=== PATIENT | female | born 1990 | race Caucasian/White ===

== ENCOUNTER 2016-06-24 10:01 | Emergency (ER) | payer MEDICAID ==
[~2016-06-24] VITALS: Ht 165.1 cm; Wt 72.0 kg
[2016-06-24 10:13] VITALS: Ht 165.1 cm; Wt 72.0 kg
[2016-06-24 11:29] LABS: URINE BLOOD (Dip) POC Negative (NEGATIVE)
--- NOTE | 2016-06-24 11:44 | ERD ---
ER Documentation Chief Complaint Date/Time DATE: 06/24/16 TIME: 11:[address], MALAISE, AND RASH ON THIGHS/HIPS, PT IS 24 WKS . HPI This is a 25-year-old female presents emergency department for sore throat, malaise with tactile fevers and chills and rash. Patient has had a rash 1 week. Patient states she has a pruritic rash to anterior thighs. Patient denies rash spreading. Patient states she has used cortisone and this improves rash and does improve itching. Patient reports tactile fevers however has not checked her temperature. She has sore throat however no difficulty swallowing, drooling or hoarseness of voice. Patient reports productive cough with blood- tinged sputum once this morning. Denies shortness of breath of breath or difficulty breathing. 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 Patient unsure of who her [facility]ILD [facility] HARVESTER is. Patient reports intermittent suprapubic pelvic pain. Denies vaginal bleeding or vaginal discharge. ROS All systems reviewed and are negative except as per history of present illness. Medications Home Meds Active Scripts Nitrofurantoin Monohyd Macrocr* (Macrobid*) 100 Mg Capsr, 100 MG PO BID for 5 Days, CAP Prov:CHRIS FERNANDEZ NP 06/24/16 Diphenhydramine Hcl* (Benadryl*) 25 Mg Cap, 25 MG PO Q6, #10 CAP Prov:CHRIS FERNANDEZ NP 06/24/16 PMhx/Soc Medical and Surgical Hx: pt denies Medical Hx, pt denies Surgical Hx Hx Alcohol Use: No Hx Substance Use: No Hx Tobacco Use: No Smoking Status: Never smoker Physical Exam Vitals Vital Signs Date Time Temp Pulse Resp B/P Pulse Ox O2 Delivery O2 Flow Rate FiO2 06/24/16 10:13 98.4 98 20 112/64 97 Physical Exam Const: No acute distress, alert Head: Atraumatic Eyes: Normal Conjunctiva ENT: Normal External Ears, Nose and Mouth. Neck: Full range of motion..~ No meningismus. Resp: Clear to auscultation bilaterally. No wheezing, rhonchi or crackles. No stridor or labored breathing. Cardio: Regular rate and rhythm, no murmurs Abd: Soft, non tender, non distended. Normal bowel sounds Skin: patient has had erythematous wheals to bilateral anterior thighs. rash is blanchable. Back: No midline or flank tenderness Ext: No cyanosis, or edema Neur: Awake and alert Psych: Normal Mood and Affect Results 24 hrs Laboratory Tests Test 06/24/16 11:30 Bedside Urine pH (LAB) 7.0 Bedside Urine Protein (LAB) Negative Bedside Urine Glucose (UA) Negative Bedside Urine Ketones (LAB) Negative Bedside Urine Blood Negative Bedside Urine Nitrite (LAB) Negative Bedside Urine Leukocyte Esterase (L 1+ Procedures/MDM ED COURSE: The patient was stable throughout ED course. I kept the patient and/or family informed of laboratory and diagnostic imaging results throughout the ED course. Laboratory Urine dip 1+ leukocytosis otherwise negative Microbiology Strep swab negative Influenza swab negative MDM: 25-year-old female presents emergency department for sore throat, malaise, rash and tactile fevers. Patient has had erythematous wheals to bilateral anterior thighs that is pruritic. Patient has used cortisone with some relief of itching. Rash is non-spreading. No area of fluctuance or induration. No fevers or chills. No abscess formation. Patient has sore throat however no difficulty swallowing, drooling or hoarseness of voice. Patient had one episode of blood tinged sputum with cough earlier today. Patient is currently 24 weeks . Patient is a A0. Patient denies vaginal bleeding however has intermittent suprapubic pelvic pain. Urine shows 1+ leukocytosis. Influenza swab and strep swab are negative. Consulted Dr. Will regarding this patient and we agree that patient is to be discharged and sent to labor and delivery for additional management. Patient will be discharged with prescription for Macrobid and benadryl. Instructed patient to follow-up with [facility] in the next 24-48 hours for reassessment and additional management. Patient will be sent up now to labor and delivery for monitoring. Return to ED for any high fever, chest pain , difficulty breathing, shortness breath, wheezing, vomiting, diarrhea, abdominal pain or any new or worsening symptoms. Patient verbalizes understanding. All questions answered at discharge. Departure Diagnosis: Primary Impression: Sore throat Additional Impression: UTI (urinary tract infection) Urinary tract infection type: site unspecified Hematuria presence: without hematuria Qualified Code: N39.0 - Urinary tract infection without hematuria, site unspecified Condition: Stable CHRIS FERNANDEZ. DIRECTOR OF KIDS Jun 24, 2016 11:44
[2016-06-24] MEDS ORDERED: BEN25 PO (12:16)
[2016-06-24] MEDS ORDERED: NITR-58 PO (12:21)
== END 2016-06-24 13:34 | disposition home or self-care (01) ==
LOC: FTE 10:01
DX: O99.512 Diseases of the respiratory system complicating pregnancy, second trimester (principal); J02.9 Acute pharyngitis, unspecified; O23.42 Unspecified infection of urinary tract in pregnancy, second trimester; Z3A.24 24 weeks gestation of pregnancy
CPT/HCPCS: 81003; 87400; 87880; Z7502; 99283

== ENCOUNTER 2016-06-24 12:37 | Outpatient (CLI) | payer MEDICAID ==
[~2016-06-24] VITALS: Ht 165.1 cm; Wt 72.0 kg
[~2016-06-24 12:37] MED LIST: BEN25 PO; NITR-58 PO
[2016-06-24 12:45] VITALS: Ht 165.1 cm; Wt 72.0 kg
[2016-06-24 12:46] VITALS: BP 140/76; PULSE 97; RESP 18
--- NOTE | 2016-06-24 13:49 | TRIAGE ---
OB Triage Datetime Report Generated by CPN: 06/24/2016 13:48 Datetime: 06/24/2016 13:40 Labor Evaluation Frequency: NONE Monitor Mode: External Resting Tone [place]: Relaxed Heart Rate FHR Baseline Rate: 130 Monitor Mode: External US Variability: Moderate 6-25 bpm Accelerations: 10X10 Decelerations: None Category: Category I Vaginal Exam Membrane Status: Intact Datetime: 06/24/2016 12:50 Stage of : OB Triage Maternal Assessment Level of Consciousness: Fully Conscious DTR's/Clonus: DTRs 2+; No Clonus Headache: Denies Blurred Vision: No Respiratory Effort: Unlabored; Regular Rhythm; Equal Expansion Breath Sounds, Left: Clear and Equal Breath Sounds, Right: Clear and Equal Nausea/Vomiting: Denies RUQ Epigastric Pain: Denies Lower Extremities Edema: None Degree: None Upper Extremities Edema: None Degree: None Facial Edema: None Temperature Route: Axillary Fall Risk Assessment History of Falling: (0) No Secondary Diagnosis: (0) No Ambulatory Aid: (0) Bedrest/Nurse Assist IV Therapy: (0) No Gait: (0) Normal/Bedrest/Immobile Mental Status: (0) Oriented to Own Ability Fall Score: 0 Fall Risk Score Definition: No Risk: No action required Labor Evaluation Frequency: none per pt Monitor Mode: External Heart Rate FHR Baseline Rate: 145 Monitor Mode: External US Pain Assessment Pain Scale: 0 Pain Presence: None/Denies Pain Type: N/A Datetime: 06/24/2016 12:49 EGA: 24.1 Datetime: 06/24/2016 12:47 Time of Arrival: 06/24/2016 12:47 Arrived By: Wheelchair Arrived From: Emergency Dept Chief Complaint: OB cleareance Movement: Present Rupture of Membranes: Denies Vaginal Bleeding: None Vaginal Discharge: Denies Recent Sexual Intercouse: Denies Abdominal Trauma: Not Applicable Patient Complaints: None Provider Notified: NURYS Initial Plan: lacey
--- NOTE | 2016-06-24 14:06 | QN ---
Documentation Comment OB Traige 24+wks GA with sore throat and UTI +FM No VB +FM No CTX No LOF NSt reassuring for GA [place] No Ctxs --->patient is discharge after further evaluation in the ER KLEVER NUNO M.D. Jun 24, 2016 14:06
== END 2016-06-24 13:49 | disposition home or self-care (01) ==
LOC: OBT 12:37 → L-D 12:39 → OBT 13:49
PROVIDERS: ATTEND Obstetrics & Gynecology
DX: O23.42 Unspecified infection of urinary tract in pregnancy, second trimester (principal); O26.892 Other specified pregnancy related conditions, second trimester; J02.9 Acute pharyngitis, unspecified; Z3A.24 24 weeks gestation of pregnancy

== ENCOUNTER 2018-09-30 10:35 | Emergency (ER) | payer OTHER ==
[~2018-09-30] VITALS: Ht 165.1 cm; Wt 71.4 kg
[~2018-09-30 10:35] MED LIST changes: +CEPH-443 PO
[2018-09-30 10:59] VITALS: BP 105/53; PULSE 78; RESP 18; Ht 165.1 cm; Wt 71.4 kg
--- NOTE | 2018-09-30 11:59 | ERD ---
ER Documentation Chief Complaint Chief Complaint pelvic pressure w/gel like vaginal discharge since yesterday HPI 28-year-old female G2, P1 currently 13 weeks with no other reported medical history presents with complaint of single episode of vaginal discharge yesterday. States she saw her approximately 2 inch left gel-like discharge from the vagina yesterday. Reports having sexual intercourse this past Saturday. She is concerned that she passed a mucous plug. She otherwise denies fevers, chills, further vaginal discharge, vaginal bleeding, pelvic pain or abdominal pain, nausea, vomiting or any other concerning symptoms. Has an ultrasound planned for tomorrow. Has upcoming appointment for L[facility] SERVICES MANAGER in several weeks. ROS All systems reviewed and are negative except as per history of present illness. Medications Home Meds Active Scripts Nitrofurantoin Monohyd Macrocr* (Macrobid*) 100 Mg Capsr, 100 MG PO BID for 5 Days, CAP Prov:CHRIS FERNANDEZ NP 06/24/16 Diphenhydramine Hcl* (Benadryl*) 25 Mg Cap, 25 MG PO Q6, #10 CAP Prov:CHRIS FERNANDEZ NP 06/24/16 Allergies Allergies: Coded Allergies: No Known Allergy (Unverified , 09/30/18) PMhx/Soc History of Surgery: No Anesthesia Reaction: No Hx Neurological Disorder: No Hx Respiratory Disorders: No Hx Cardiac Disorders: No Hx Psychiatric Problems: No Hx Miscellaneous Medical Probl: Yes (blood clotting issues) Hx Alcohol Use: No Hx Substance Use: No Hx Tobacco Use: No Smoking Status: Never smoker FmHx Family History: No diabetes, No coronary disease, No other Physical Exam Vitals Vital Signs Date Temp Pulse Resp B/P (MAP) Pulse Ox O2 O2 Flow FiO2 Time Delivery Rate 09/30/18 97.9 78 18 105/53 99 10:59 (70) Physical Exam Const: No acute distress Head: Atraumatic Eyes: Normal Conjunctiva ENT: Normal External Ears, Nose and Mouth. Neck: Full range of motion. No meningismus. Resp: Clear to auscultation bilaterally Cardio: Regular rate and rhythm, no murmurs Abd: Soft, non tender, non distended. Normal bowel sounds Skin: No petechiae or rashes Back: No midline or flank tenderness Ext: No cyanosis, or edema Neur: Awake and alert Psych: Normal Mood and Affect Result Diagram: 09/30/18 1147 09/30/18 1147 Results 24 hrs Laboratory Tests Test 09/30/18 11:47 09/30/18 11:50 White Blood Count 10.0 10^3/ul Red Blood Count 4.36 10^6/ul Hemoglobin 13.2 g/dl Hematocrit 39.6 % Mean Corpuscular Volume 90.8 fl Mean Corpuscular Hemoglobin 30.3 pg Mean Corpuscular Hemoglobin Concent 33.3 g/dl Red Cell Distribution Width 11.9 % Platelet Count 297 10^3/UL Mean Platelet Volume 9.7 fl Immature Granulocytes % 0.500 % Neutrophils % 72.7 % Lymphocytes % 19.3 % Monocytes % 6.8 % Eosinophils % 0.4 % Basophils % 0.3 % Nucleated Red Blood Cells % 0.0 /100WBC Immature Granulocytes # 0.050 10^3/ul Neutrophils # 7.2 10^3/ul Lymphocytes # 1.9 10^3/ul Monocytes # 0.7 10^3/ul Eosinophils # 0.0 10^3/ul Basophils # 0.0 10^3/ul Nucleated Red Blood Cells # 0.0 10^3/ul Sodium Level 138 mmol/L Potassium Level 3.9 mmol/L Chloride Level 103 mmol/L Carbon Dioxide Level 26 mmol/L Anion Gap 9 Blood Urea Nitrogen 7 mg/dl Creatinine 0.49 mg/dl Est Glomerular Filtrat Rate mL/min > 60 mL/min Glucose Level 85 mg/dl Calcium Level 9.7 mg/dl Beta HCG, Quantitative 18404.0 mIU/ml Urine Color YELLOW Urine Clarity CLOUDY Urine pH 7.0 Urine Specific [place] 1.010 Urine Ketones NEGATIVE mg/dL Urine Nitrite NEGATIVE mg/dL Urine Bilirubin NEGATIVE mg/dL Urine Urobilinogen NEGATIVE mg/dL Urine Leukocyte Esterase 3+ Taryn/ul Urine Microscopic RBC 5 /HPF Urine Microscopic WBC 29 /HPF Urine Squamous Epithelial Cells MODERATE /HPF Urine Bacteria FEW /HPF Urine Hemoglobin NEGATIVE mg/dL Urine Glucose NEGATIVE mg/dL Urine Total Protein NEGATIVE mg/dl Procedures/MDM 28-year-old female presents with concern for passage of mucous plugs at 13 weeks . ED course: Transvaginal first trimester ultrasound live intrauterine 13 weeks, unremarkable ovaries and pelvic structures Cervical length 3.5cm UA 3+ leukocyte esterase 29 WBC, will treat with Keflex antibiotic for presumed UTI Labs: Unremarkable other than above She is advised to continue follow-up with her PMD and L[facility]ATION SERVICES MANAGER for continued care during her . Strict return precautions explained in detail. DISPOSITION PLAN: We discussed follow up with the patient's primary care doctor within 24 to 48 hours. Patient counseled regarding my diagnostic impression and care plan. Prior to discharge all questions answered. Pt agrees with treatment plan and understands strict return precautions. Precautionary instructions provided including instructions to return to the ER if not improving or for any worsening or changing symptoms or concerns. Disclaimer: Inadvertent spelling and grammatical errors are likely due to EHR/dictation software use and do not reflect on the overall quality of patient care. Also, please note that the electronic time recorded on this note does not necessarily reflect the actual time of the patient encounter. Departure Diagnosis: Primary Impression: Vaginal discharge Condition: Stable Patient Instructions: : Your First Trimester Changes Additional Instructions: Call your primary care doctor TOMORROW for an appointment during the next 2-3 days.See the doctor sooner or return here if your condition worsens before your appointment time. KIKI SAVAGE PA-C Sep 30, 2018 11:59
== END 2018-09-30 13:48 | disposition home or self-care (01) ==
LOC: FTE 10:35
DX: O26.891 Other specified pregnancy related conditions, first trimester (principal); N89.8 Other specified noninflammatory disorders of vagina; R10.2 Pelvic and perineal pain; Z3A.13 13 weeks gestation of pregnancy
CPT/HCPCS: 36415; 76801; 76817; 80048; 81001; 84702; 85025; 86900; 86901; 87086